=== PATIENT | male | born 1970 | race Caucasian/White ===

== ENCOUNTER 2017-03-17 18:10 | Emergency (ER) | payer OTHER ==
--- NOTE | ~2017-03-17 | CR210 ---
[facility] A Service of [facility] RADIOLOGY TEXT RESULTS PATIENT: ADRIANA NUNEZ LOCATION: SED : 74 UNIT #: [id number] AGE: [address]: Amee Hooks APRN SEX: M ORDER DR: [id number] [place] [id number] E MR#: [id number] Acc #: [id number] NAME: ADRIANA NUNEZ : 1970 SEX: M STUDY DATE/TIME: 03/17/2017 19:02 UNIT: SED ROOM: STUDY DESCRIPTION: CR Ribs Uni 2 View W PA Ch Lt Attending Physician: Amee Hooks A.P.R.N. Ordering Physician: Amee Hooks A.P.R.N. Primary Care Physician: No Primary Care Physician MEDICAL IMAGING REPORT This report is preliminary unless electronic signature is present. EXAM Chest and left ribs, two view HISTORY Pain in lower ribs that started Thursday or Thursday. Patient fell after slipping and landing on the left side COMMENTS Single frontal portable view chest and three-views left wrist are submitted for review. No previous. Evaluation of the chest x-ray shows normal cardiac silhouette size. There is some minimal parenchymal scarring at the left base laterally. There is no acute infiltrate acute congestive failure, pleural effusion or pneumothorax. Evaluation of the left ribs shows no displaced rib fracture. IMPRESSION 1. No active disease is seen in the chest. 2. No evidence for displaced left rib fracture. STAT * RESULT Dictated by... Leila Peres M.D. THIS IS AN ELECTRONICALLY VERIFIED REPORT [facility] A Service of [facility] RADIOLOGY TEXT RESULTS PATIENT: ADRIANA NUNEZ LOCATION: SED : 74 UNIT #: [id number] AGE: [address]: Amee Hooks APRN SEX: M ORDER DR: Leila Peres M.D. at 03/17/2017 9:32 PM CRESENCIO/nathan TD: 03/17/2017 19:29 JOB #: [id number] MEDICAL IMAGING REPORT Page 1 of 1
[2017-03-17] MEDS ORDERED: INSULIN (18:12)
[2017-03-17] MEDS ORDERED: LOVASTATIN (18:12)
== END 2017-03-17 20:22 | disposition home or self-care (01) ==
LOC: SED 18:10
DX: S20.212A Contusion of left front wall of thorax, initial encounter (principal); W01.0XXA Fall on same level from slipping, tripping and stumbling without subsequent striking against object, initial encounter; Y92.009 Unspecified place in unspecified non-institutional (private) residence as the place of occurrence of the external cause
CPT/HCPCS: 71100; 99283